=== PATIENT | female | born 1990 | race Caucasian/White ===

== ENCOUNTER → 2023-10-20 16:08 | Outpatient (REF) | payer BC, SELFPAY ==
[2023-10-20 16:48] LABS: % Basophils 0.6 % (0-2); % Eosinophils 1.8 % (0-6); % Immature Granulocytes 0.1 % (0-0.5); % Lymphocytes 28.7 % (20.5-51.1); % Monocytes 7.5 % (1.7-9.3); % Neutrophils 61.3 % (42.2-75.2); Absolute Basophils 0.1 10^3/uL (0-0.2); Absolute Eosinophils 0.2 10^3/uL (0-0.7); Absolute Lymphocytes 2.5 10^3/uL (1.2-3.4); Absolute Monocytes 0.7 10^3/uL (0.1-0.6); Absolute Neutrophils 5.4 10^3/uL (1.4-6.5); Hematocrit 45.4 % (37.0-47.0); Mean Corpuscular Hgb 30.1 pg (27.0-31.0); Mean Corpuscular Volume 91.2 fL (81.0-99.0); Mean Platelet Volume 10.5 fL (7.4-10.4); Nucleated Red Blood Cells % 0 %; Platelet Count 268 10^3/uL (130-400); Red Blood Cell Count 4.98 10^6/uL (4.20-5.40); Red Cell Dist. Width 13.3 % (11.5-14.5); White Blood Cell Count 8.8 10^3/uL (4.8-10.8)
[2023-10-20 17:12] LABS: ALT (SGPT) 17 U/L (0-35); AST (SGOT) 17 U/L (14-36); Albumin 4.5 g/dl (3.5-5.0); Alkaline Phosphatase 74 U/L (38-126); Blood Urea Nitrogen 10 mg/dl (7-17); Calcium 9.7 mg/dl (8.4-10.2); Carbon Dioxide 23 mmol/L (22-30); Chloride 108 mmol/L (98-107); Glucose 80 mg/dl (70-99); HDL Cholesterol 50 mg/dl; LDL Cholesterol, Calculated 147 mg/dl; Potassium 4.2 mmol/L (3.5-5.1); Sodium 138 mmol/L (135-145); Total Bilirubin 0.6 mg/dl (0.2-1.3); Total Cholesterol 230 mg/dl (50-199); Total Protein 7.5 g/dl (6.3-8.2); Triglyceride 168 mg/dl (10-149); Very Low Density Lipoprotein 33 mg/dl (0-30); eGFR > 60.00
[2023-10-20 17:49] LABS: TSH Reflex To Free T4 2.27 uIU/ml (0.47-4.68)
[2023-10-20 17:52] LABS: HIV Combo Negative (Negative)
[2023-10-21 09:09] LABS: Glycohemoglobin (HgbA1c) 5.2 % (4.0-5.6)
[2023-10-23 03:01] LABS: HSV 1/2 Combined Screen, IgG >22.40 IV
[2023-10-23 12:02] LABS: Aptima Media Type Urine; Chlamydia trachomatis by TMA Negative (Negative); Neisseria gonorrhoeae by TMA Negative (Negative); Specimen Source Urine
== END ==
LOC: CLAB 16:08
PROVIDERS: ATTENDING PHYSICIAN Family Medicine
DX: Z00.00 Encounter for general adult medical examination without abnormal findings (principal); R73.01 Impaired fasting glucose; Z20.2 Contact with and (suspected) exposure to infections with a predominantly sexual mode of transmission; B00.9 Herpesviral infection, unspecified
CPT/HCPCS: 80053; 80061; 83036; 84443; 85025; 86694; 86780; 87389; 87491; 87591

== ENCOUNTER → 2024-09-13 16:37 | Outpatient (REF) | payer BC, SELFPAY ==
[2024-09-13 17:25] LABS: Urine Albumin 1+ (Neg - Trace); Urine Bilirubin Negative (Negative); Urine Character Clear (Clear); Urine Color Yellow; Urine Glucose Negative (Negative); Urine Ketone 1+ (Negative); Urine Leukocyte Negative (Negative); Urine Nitrite Negative (Negative); Urine Occult Blood 4+ (Negative); Urine Urobilinogen Negative (Neg - 1+)
[2024-09-13 17:40] LABS: Urine Squamous Cell >30 /LPF (Few)
[2024-09-13 17:41] LABS: Urine Bacteria Few (Negative); Urine Mucus Few; Urine Red Blood Cell 16-20 /HPF (0-2); Urine White Cell 0-2 /HPF (0-5)
== END ==
LOC: CLAB 16:37
PROVIDERS: ATTENDING PHYSICIAN Nurse Practitioner Family
DX: R30.0 Dysuria (principal)
CPT/HCPCS: 81003; 81015; 87086

== ENCOUNTER → 2024-09-17 16:32 | Outpatient (REF) | payer BC, SELFPAY ==
[2024-09-17 16:46] LABS: Urine Albumin 1+ (Neg - Trace); Urine Bilirubin Negative (Negative); Urine Character Clear (Clear); Urine Color Yellow; Urine Glucose Negative (Negative); Urine Ketone Negative (Negative); Urine Leukocyte Negative (Negative); Urine Nitrite Negative (Negative); Urine Occult Blood 4+ (Negative); Urine Specific Gravity 1.025 (<1.030); Urine Urobilinogen Negative (Neg - 1+)
[2024-09-17 17:07] LABS: Urine Bacteria Few (Negative); Urine Squamous Cell 16-20 /LPF (Few); Urine White Cell 0-2 /HPF (0-5)
== END ==
LOC: CLAB 16:32
PROVIDERS: ATTENDING PHYSICIAN Nurse Practitioner Family
DX: R30.0 Dysuria (principal)
CPT/HCPCS: 81003; 81015; 87086

== ENCOUNTER 2025-01-29 08:24 | Emergency (ER) | payer BC, SELFPAY ==
[2025-01-29 08:24] VITALS: BMI 43.9
[2025-01-29 08:25] VITALS: BP 137/96
--- NOTE | 2025-01-29 09:56 | ED.GENMED ---
History of Present Illness
General
Chief Complaint: Back Pain
Source: patient
Exam Limitations: none
Time Seen by Provider: 01/29/25 09:40
Nursing documentation reviewed up to this point in time: agreed with
History of Present Illness
History of Present Illness:
Patient is a 34-year-old female with history of spinal stenosis who presents to the emergency department for evaluation of left lower back pain radiating into the left leg patient states symptoms started Monday when she woke up and seemed better
Monday however worsened again yesterday. She was seen by her primary care provider who started on a Medrol Dosepak however she has not noticed any improvement yet prompting visit to the emergency department.
She describes a sharp stabbing pain in her left mid thigh which does radiate down. She feels pins/needles in her left foot.
She does have a history of spinal stenosis and pain that typically resolves with steroid packs
Patient denies any recent trauma. No fever or chills. No chest pain, shortness of breath, or abdominal pain. No bowel/bladder incontinence.
Past History
Past History
ED Past Medical History: Other (Migraines); Negative Asthma, HTN, Hypercholesterolemia or NIDDM
ED Past Surgical History: None
Social History
Tobacco: Former smoker
Alcohol: Occasional
Drug: None
Personal: Single
Living: with family
Employment: Employed (photographer portrait)
Family History
Family History: Negative Early CAD
Review of Systems
Review of Systems
Allergies reviewed?: Yes
All Other Systems: ROS reviewed and negative except as documented in HPI and ROS
Phy Exam
Physical Exam
Physical Exam:
Vitals: Hypertensive, otherwise vital signs stable. Afebrile
General: Patient is tearful.
Skin: Warm and dry, no rashes or lesions
Head: Normocephalic, atraumatic
Eyes: Sclera nonicteric.
Throat: Protecting airway
Neck: Normal ROM, no cervical spine tenderness, no meningismus
Cardiac: Regular rate and rhythm, no murmurs.
Pulm: Normal respiratory effort, no wheezes, rales, rhonchi heard on exam
Abdomen: Abdomen soft and nontender.
Back: Point tenderness at left lower back/buttock near SI joint. No rash or ecchymoses. Negative straight leg raise on left side.
Extremities: Strength 5/5 in bilateral lower extremities. Sensation intact. No evidence of cyanosis or edema. No obvious left lower extremity.
Neuro: AAOx3. Grossly intact.
Psychiatric: Normal affect.
Course
Orders/Labs/Results
Orders:
Orders
01/29/25 09:53
Acetaminophen [Tylenol] 650 mg PO NOW STA
Ketorolac [Toradol] 15 mg IM NOW STA
Lidocaine [Lidocaine 4% Patch] 1 patch TOPICAL NOW STA
Apply Lidocaine patch(s) to:: Left posterior thigh
Lumbar Spine, 2 or 3 View [CR Lumbar Spine 2 Or 3 Views] Urgent
Comment: hx spinal stenosis
Reason For Exam: Left lower back/leg pain
01/29/25 11:23
Oxycodone [Roxicodone] 5 mg PO NOW STA
Prednisone [Deltasone] 50 mg PO NOW STA
01/29/25 11:33
Urinalysis Reflex To Culture Urgent
Date Specimen was Collected: 01/29/25
Time Specimen was Collected: 11:17
Urine Microscopic Reflex Cult Urgent
Abnormal Lab Results
01/29/25
11:33
Ur Occult Blood Reflex 1+ A
(Negative)
Urine Bacteria (Reflex) Few A
(Negative)
Urine Albumin (Reflex) 1+ A
(Neg - Trace)
Vital Signs
Initial and Last Documented VS:
Initial Vital Signs
Temp Pulse Resp BP Pulse Ox
98.0 F 76 16 137/96 98
01/29/25 08:25 01/29/25 08:25 01/29/25 08:25 01/29/25 08:25 01/29/25 08:25
Last Documented Vital Signs
Temp Pulse Resp BP Pulse Ox
98.0 F 71 16 128/74 99
01/29/25 08:25 01/29/25 12:39 01/29/25 12:39 01/29/25 12:39 01/29/25 12:39
MDM/Problems Addressed
Differential Diagnosis Includes:
Not limited to: Sciatica pain, spinal stenosis, muscle strain/spasm, etc.
MDM/Problems Addressed:
34-year-old female with atraumatic left lower back pain rating to left leg. She does have history of spinal stenosis. Pain worse with movement and ambulation. No recent trauma. No bladder/bowel incontinence or saddle paresthesias. Vitals and
physical exam as above.
Ultimately� MSK pain most likely with a component of sciatica given the radicular pain. Low concern for acute life threatening etiology. Patient does not have red flag s/s for cauda equina syndrome, osteomylitis, discitis, epidural abscess. History
and exam not consisitent with traumatic fracture or pathologic fracture. Hx and exam of low concern for renal stone or pyelo and not consistent with atoric/vascular catastrophe.
ED plan: Check lumbar x-ray, treat symptoms and reassess.
Lumbar x-ray reveals degenerative changes at L5/S1 level. Patient with some improvement in symptoms following symptomatic treatment in ED. She is comfortable at rest although pain exacerbated with movement however she was able to ambulate
independently. At this point�feel stable for discharge home with supportive care. Will send course of steroid burst as well as trial of gabapentin for suspected neuropathic pain. Very strict return precautions discussed. Advise follow-up with
primary care/neurosurgery for further evaluation/management given history of spinal stenosis. Patient comfortable with plan.
Chronic conditions affecting care:
Spinal stenosis
Acute Exacerbation and/or Progression of Chronic Illness:
N/A
*Radiology
Radiology exam reviewed: radiology read reviewed
*Pulse Oximetry
SaO2: 98
Oxygen Mode of Delivery: Room air
Patient hypoxic: no
*EKG
Interpreted by ED Provider?: NA
*Community Fundraiser Interpretation
Rate: Community Fundraiser- N/A
*Critical Care Note
Total Time (30-74mins, 75-104mins- exclusive of procedures): Not Applicable
ED Attending Note
-
Portions of this chart may have been created with voice recognition software.� Occasional wrong word or��sound alike� substitutions may have occurred due to the inherent limitations of voice recognition software.
Discharge Plan
Departure
Patient Disposition: Home (Routine Discharge)
Date of Disposition: 01/29/25
Time of Disposition: 12:34
Patient with high blood pressure during this ER visit?: Yes
Condition: Good
Discharge Problem:
Low back pain radiating to left leg
Instructions: Radiculopathy (DC), BLOOD PRESSURE
Prescriptions:
New
prednisone 20 mg tablet
40 mg PO DAILY 4 Days Qty: 8 0RF
gabapentin 100 mg capsule
100 mg PO TID Qty: 21 0RF
No Action
valacyclovir [Valtrex] 1,000 MG tablet
1,000 mg PO TID Qty: 21 0RF
Referrals:
Coral Lowry MD [Active, Neurosurgery]
Roe Mcginnis DO [Family Provider, Family Practice]
Stand Alone Forms: Return to Work
Activity Restrictions/Additional Instructions:
RETURN TO THE EMERGENCY DEPARTMENT WITH ANY INTRACTABLE PAIN, FEVERS, NUMBNESS/TINGLING OR WEAKNESS IN LOWER EXTREMITIES, LOSS OF BOWEL/BLADDER CONTROL, WORSENING IN CURRENT SYMPTOMS, OR ANY OTHER CONCERNS
-As discussed that your x-ray showed no evidence of acute fracture however did note some degenerative changes in the lower spine.
-You can discontinue the Medrol Dosepak as a prescription for prednisone has been sent to your pharmacy. The prescription for gabapentin has been sent to your pharmacy. Please take this up to 3 times a day as needed for pain. You can take Tylenol
and/or Motrin.
- Follow-up with your primary care/neurosurgery for further evaluation/management to ensure that your symptoms improve. You will likely require an MRI of your spine
Monitor your symptoms the emergency department with any acute worsening/new symptoms or any other concerns
Interventions
Interventions:
*Risk Screen - Suicide Last Done: 01/29/25 08:25
*General Assessment Last Done: 01/29/25 11:50
*Neglect/Abuse Screening Last Done: 01/29/25 08:25
*ED- Fall Risk Assessment Last Done: 01/29/25 11:50
*Nursing Disposition Last Done: 01/29/25 12:39
ED-Musculoskeletal Assessment Last Done: 01/29/25 10:28
Discharge Date and Time
Discharge Date/Time: 01/29/25 12:41
Print Language: GUINEAN
[2025-01-29] MEDS: TYLENOL 650 MG PO (10:21)
[2025-01-29] MEDS: TORADOL 15 MG IM (10:21)
[2025-01-29] MEDS: LIDOCAINE 4% PATCH 1 PATCH TOPICAL (10:22)
[2025-01-29] MEDS: ROXICODONE 5 MG PO (11:30)
[2025-01-29] MEDS: DELTASONE 50 MG PO (11:31)
[2025-01-29 11:59] LABS: Urine Character Clear (Clear)
[2025-01-29 12:11] LABS: Urine Red Blood Cell 0-2 /HPF (0-2)
[2025-01-29 12:39] VITALS: BP 128/74
== END 2025-01-29 12:41 | disposition home or self-care (01) ==
LOC: EMR 08:24
PROVIDERS: EMERGENCY PHYSICIAN Emergency Medicine; FAMILY PHYSICIAN Family Medicine
DX: M54.50 Low back pain, unspecified (principal); M79.605 Pain in left leg; Z87.891 Personal history of nicotine dependence; M48.00 Spinal stenosis, site unspecified
CPT/HCPCS: 96372; 99284; 72100; 81003; 81015

== ENCOUNTER 2025-04-16 14:53 | Emergency (ER) | payer BC, SELFPAY ==
[2025-04-16 14:54] VITALS: BP 158/98
--- NOTE | 2025-04-16 15:26 | ED.GENMED ---
History of Present Illness
<Bernard Steen MD, Resident - Last Filed: 04/16/25 17:48>
General
Chief Complaint: Urinary Symptoms
Source: patient
Time Seen by Provider: 04/16/25 15:09
History of Present Illness
History of Present Illness:
Patient is a 34-year-old female with PMH of spinal stenosis, disc herniation, and bipolar 1 disorder who presents to the [facility] ED for inability to urinate. Patient last urinated around 10 or 11 AM this morning. No associated abdominal pain,
dysuria, N/V/D, weakness, numbness, urinary or bowel incontinence, changes to bowel habits, saddle anesthesia, F/F/C, or headache. Patient has been hydrating normally. Patient has had chronic urinary hesitancy since approximately January. Patient
saw a neurosurgeon at [facility] (Dr. Barros) yesterday with associated MRI completed in February, and she was diagnosed with upper lumbar spinal stenosis and L5-S1 disc herniation.
Past History
<Bernard Steen MD, Resident - Last Filed: 04/16/25 17:48>
Past History
ED Past Medical History: Other (Migraines), Other (Spinal stenosis (upper lumbar)) and Other (Disc herniation (L5-S1)); Negative Asthma, HTN, Hypercholesterolemia or NIDDM
ED Past Surgical History: None
Social History
Tobacco: Former smoker
Alcohol: Occasional
Drug: None
Personal: Single
Living: with family
Employment: Employed (order checker)
Family History
Family History: Negative Early CAD
Review of Systems
<Bernard Steen MD, Resident - Last Filed: 04/16/25 17:48>
Review of Systems
Constitutional: Denies fever, weight loss, fatigue or chills
Respiratory: Denies cough or trouble breathing
Cardiac: Denies chest pain or palpitations
ABD/GI: Denies abdominal pain, nausea, vomiting or diarrhea
: Reports difficulty voiding; Denies dysuria, frequency, flank pain, incontinence or urgency
Neurological: Reports other (Denies saddle anesthesia); Denies headache, weakness or numbness
Phy Exam
<Bernard Steen MD, Resident - Last Filed: 04/16/25 17:48>
Physical Exam
Physical Exam:
General: NAD. Conversant.
Neuro: A&O x 3. Motor, sensory intact all extremities. No focal deficits. CN II through XII intact.
GI: Soft, nontender. No suprapubic fullness or TTP. No masses.
: No CVA tenderness.
CV: RRR. S1, S2 noted. No LE edema. No M/R/G.
Pulm: CTAB. No wheezes or crackles
Psych: Anxious.
Course
<Bernard Steen MD, Resident - Last Filed: 04/16/25 17:48>
Orders/Labs/Results
Orders:
Orders
04/16/25 15:35
Bladder Scan- Treatment ONCE
04/16/25 17:27
Urinalysis Reflex To Culture Urgent
Vital Signs
Initial and Last Documented VS:
Initial Vital Signs
Temp Pulse Resp BP Pulse Ox
98 F 97 20 158/98 96
04/16/25 14:54 04/16/25 14:54 04/16/25 14:54 04/16/25 14:54 04/16/25 14:54
Last Documented Vital Signs
Temp Pulse Resp BP Pulse Ox
98 F 97 20 131/80 100
04/16/25 14:54 04/16/25 14:54 04/16/25 14:54 04/16/25 17:00 04/16/25 17:15
<Favian Pearson, DO - Last Filed: 04/16/25 16:21>
Orders/Labs/Results
Orders:
Orders
04/16/25 15:35
Bladder Scan- Treatment ONCE
04/16/25 17:27
Urinalysis Reflex To Culture Urgent
Vital Signs
Initial and Last Documented VS:
Initial Vital Signs
Temp Pulse Resp BP Pulse Ox
98 F 97 20 158/98 96
04/16/25 14:54 04/16/25 14:54 04/16/25 14:54 04/16/25 14:54 04/16/25 14:54
Last Documented Vital Signs
Temp Pulse Resp BP Pulse Ox
98 F 97 20 131/80 100
04/16/25 14:54 04/16/25 14:54 04/16/25 14:54 04/16/25 17:00 04/16/25 17:15
<Bernard Steen MD, Resident - Last Filed: 04/16/25 17:48>
MDM/Problems Addressed
Differential Diagnosis Includes:
Urinary retention
Cauda equina syndrome
Cystitis
Pyelonephritis
Anxiety
MDM/Problems Addressed:
Assessment: Patient is a 34-year-old female with PMH of upper lumbar spinal stenosis, L5-S1 disc herniation, and bipolar 1 disorder who presents to the [facility] ED with approximately 4-5 hours of inability to urinate in the setting of 2-3 months
of urinary hesitancy. No other associated symptoms, including abdominal pain, dysuria, weakness, numbness, saddle anesthesia, bowel or bladder incontinence, or F/F/C. Physical exam unremarkable. Bladder scan shows 20 mL. Patient given oral
hydration as urinated x 2 without issue since initial evaluation in the ED. UA pending.
Plan:
#Inability to urinate
Imaging: Bladder scan
Labs: UA
Oral fluids, observe to ensure patient can urinate on her own
<Bernard Steen MD, Resident - Last Filed: 04/16/25 17:48>
*Pulse Oximetry
SaO2: 96
Oxygen Mode of Delivery: Room air
Patient hypoxic: no
*Critical Care Note
Total Time (30-74mins, 75-104mins- exclusive of procedures): Not Applicable
ED Attending Note
<Bernard Steen MD, Resident - Last Filed: 04/16/25 17:48>
-
Portions of this chart may have been created with voice recognition software.� Occasional wrong word or��sound alike� substitutions may have occurred due to the inherent limitations of voice recognition software.
<Favian Pearson, - Last Filed: 04/16/25 16:21>
ED Attending Note
Patient seen and examined by attending physician: Yes
I performed a history and physical exam of patient and discussed management with resident, I reviewed resident's note and agree with documented findings and plan of care.: Yes
ED Attending Note:
Seen with resident examined independently 34-year-old female greater than 10 years of back pain diagnosed with a herniated disc at L5 by MRI a few months ago saw neurosurgery yesterday [facility] referred to get epidural steroid injection
physical therapy apparently she is having trouble emptying her bladder she says dates back to January of this year, here she looks well with normal mental status able to lift her legs off the bed no incontinence of her bowels or bladder, bladder scan
with less than 50 cc urine reviewed with patient, would like to check urinalysis, would like to ensure that she is not retention,
Discharge Plan
Departure
Patient with high blood pressure during this ER visit?: Yes
Condition: Good
Covid-19: Not Applicable
Discharge Problem:
Urinary problem in female
Instructions: BLOOD PRESSURE, Urinary retention (DC)
Prescriptions:
No Action
valacyclovir [Valtrex] 1,000 MG tablet
1,000 mg PO TID Qty: 21 0RF
prednisone 20 mg tablet
40 mg PO DAILY 4 Days Qty: 8 0RF
gabapentin 100 mg capsule
100 mg PO TID Qty: 21 0RF
Referrals:
Roe Mcginnis, [Family Provider, Family Practice]
Activity Restrictions/Additional Instructions:
Recommend follow-up with PCP and neurosurgery as needed
Return to ED if you develop inability to urinate, weakness, numbness, fever, or any other acute symptoms.
Interventions
Interventions:
*Risk Screen - Suicide Last Done: 04/16/25 14:54
*General Assessment Last Done: 04/16/25 14:54
*Neglect/Abuse Screening Last Done: 04/16/25 14:54
*ED- Fall Risk Assessment Last Done: 04/16/25 16:51
*ED COVID-19 Vaccine History Last Done: 04/16/25 16:51
*ED Influenza Vaccine History Last Done: 04/16/25 16:51
ED-Female Genitourinary Assessment Last Done: 04/16/25 15:27
Discharge Date and Time
Print Language: IRISH
[2025-04-16 16:51] VITALS: BMI 43.5
[2025-04-16 17:00] VITALS: BP 131/80
[2025-04-16 17:51] LABS: Urine Character Slightly Cloudy (Clear)
[2025-04-16 18:07] LABS: Urine Squamous Cell 16-20 /LPF (Few)
[2025-04-16 18:08] LABS: Urine Red Blood Cell 0-2 /HPF (0-2); Urine White Cell 0-2 /HPF (0-5)
== END 2025-04-16 18:22 | disposition home or self-care (01) ==
LOC: EMR 14:53
PROVIDERS: EMERGENCY PHYSICIAN Emergency Medicine; FAMILY PHYSICIAN Family Medicine
DX: R39.198 Other difficulties with micturition (principal); Z87.891 Personal history of nicotine dependence
CPT/HCPCS: 99283; 81003; 81015

== ENCOUNTER 2025-05-06 06:42 | Outpatient (RCR) | payer BC, SELFPAY | END 2025-05-13 23:59 | disposition home or self-care (01) | LOC: RPT 06:42 | PROVIDERS: ATTENDING PHYSICIAN Neurological Surgery | DX: M54.50 Low back pain, unspecified (principal); Z73.6 Limitation of activities due to disability; M62.81 Muscle weakness (generalized); M79.605 Pain in left leg; R20.0 Anesthesia of skin; M51.27 Other intervertebral disc displacement, lumbosacral region; M48.061 Spinal stenosis, lumbar region without neurogenic claudication | CPT/HCPCS: 97162 ==

== ENCOUNTER 2025-06-03 18:04 | Outpatient (RCR) | payer BC, SELFPAY | END 2025-06-03 23:59 | disposition home or self-care (01) | LOC: RPT 18:04 | PROVIDERS: ATTENDING PHYSICIAN Neurological Surgery | DX: M54.50 Low back pain, unspecified (principal); Z73.6 Limitation of activities due to disability; M62.81 Muscle weakness (generalized); M79.605 Pain in left leg; R20.0 Anesthesia of skin; M51.27 Other intervertebral disc displacement, lumbosacral region; M48.061 Spinal stenosis, lumbar region without neurogenic claudication | CPT/HCPCS: 97110; 97112; 97530 ==